=== PATIENT | female | born 1970 | race Caucasian/White ===

== ENCOUNTER 2016-12-26 08:54 | Day surgery (SDC) | payer BC ==
[~2016-12-26 08:54] MED LIST: Lactated Ringers 1,000 ML IV SCH; Lidocaine 1%/Sod Bicarbonate in NS 8.4% 1 ML Syringe PRN; Sodium Chloride 0.9% 10 ML Syringe FLUSH PRN
[2016-12-26] MEDS ORDERED: Ondansetron 4 MG/2 ML SDV IVPUSH PRN (09:10)
[2016-12-26] MEDS ORDERED: fentaNYL 100 MCG/2 ML SDV IVPUSH PRN (09:10)
--- NOTE | 2016-12-26 09:22 | PCM.PREANE ---
Preanesthetic Assessment - Anesthesia/Transfusion/Family Hx Anesthesia History: Prior Anesthesia Without Reaction Type of Anesthesia Reaction: Unknown Family History of Anesthesia Reaction: No Transfusion History: No Prior Transfusion(s) - Review of Systems General: No Symptoms Pulmonary: No Symptoms Cardiovascular: No Symptoms Gastrointestinal: No symptoms Other: Reports: None - Physical Assessment NPO Status Date: 12/25/16 NPO Status Time: 20:30 Pulse: 80 O2 Sat by Pulse Oximetry: 100 Respiratory Rate: 16 Blood Pressure: 116/80 Temperature: 36.8 C Weight: 71 kg ASA Class: 1 Mental Status: Alert & Oriented x3 Airway Class: Mallampati = 1 Dentition: Reports: Normal Dentition Thyro-Mental Finger Breadths: 3 Mouth Opening Finger Breadths: 3 ROM/Head Extension: Full Lungs: Clear to auscultation, Normal respiratory effort Cardiovascular: Regular Rate, Regular Rhythm - Allergies Allergies/Adverse Reactions: Allergies Allergy/AdvReac Type Severity Reaction Status Date / Time No Known Allergies Allergy Verified 12/25/16 17:04 - Blood Blood Available: No Product(s) Available: None - Anesthesia Plan Pre-Op Medication Ordered: None - Acknowledgements Anesthesia Type Planned: MAC Pt an Appropriate Candidate for the Planned Anesthesia: Yes Alternatives and Risks of Anesthesia Discussed w Pt/Guardian: Yes Pt/Guardian Understands and Agrees with Anesthesia Plan: Yes PreAnesthesia Questionnaire HEENT History: Reports: None Cardiovascular History: Reports: None Respiratory History: Reports: None 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: Musculoskeletal History: Reports: None Neurological History: Reports: None Psychiatric History: Reports: None Endocrine/Metabolic History: Reports: None Hematologic History: Reports: None Immunologic History: Reports: None Oncologic (Cancer) History: Reports: None Dermatologic History: Reports: None - Past Surgical History Head Surgeries/Procedures: Reports: None GI Surgical History: Reports: Cholecystectomy Female Surgical History: Reports: Tubal ligation - SUBSTANCE USE Smoking Status *Q: Never Smoker - HOME MEDS Home Medications: Home Meds Flaxseed Oil [Flax Oil] 1 cap PO DAILY 12/25/16 [History] L.acidoph,Paracasei, B.lactis [Probiotic] 1 cap PO DAILY 12/25/16 [History] Multivitamin [Poly-Vitamin] 1 tab PO DAILY 12/25/16 [History] Vit A/Vit C/Vit E/Selenium Yst [Antioxidant Formula Tablet] 1 tab PO DAILY 12/25 [History] - CURRENT (IN HOUSE) MEDS Current Meds: Current Medications Fentanyl (Sublimaze) 50 mcg IVPUSH Q5M PRN PRN Reason: pain Stop: 12/26/16 18:00 Lactated Ringer's (Ringers, Lactated) 1,000 mls @ 125 mls/hr IV ASDIRECTED JOVANI Stop: 12/26/16 23:00 Lidocaine/Sodium Bicarbonate (Buffered Lidocaine 1% In Ns 8.4%) 0.25 ml .XX ONETIME PRN PRN Reason: Prior to IV Start Stop: 12/26/16 18:00 Ondansetron HCl (Zofran) 4 mg IVPUSH ONETIME PRN PRN Reason: Nausea/Vomiting Stop: 12/26/16 18:00 Sodium Chloride (Saline Flush) 10 ml FLUSH ASDIRECTED PRN PRN Reason: Keep Vein Open Stop: 12/26/16 18:00
[2016-12-26] MEDS ORDERED: Propofol 200 MG/20 ML SDV ONE ×2 (09:44→12:00)
[2016-12-26] MEDS ORDERED: fentaNYL 100 MCG/2 ML SDV ONE ×3 (09:44→12:09)
[2016-12-26] MEDS ORDERED: Midazolam 1 MG/ML 2 ML SDV ONE (09:44)
[2016-12-26] MEDS ORDERED: Sodium Chloride 0.9% 10 ML ONE (09:49)
[2016-12-26] MEDS ORDERED: ceFAZolin 1 GM Vial ONE (09:49)
[2016-12-26] MEDS ORDERED: Lidocaine 1% with EPINEPHrine 1:100,000 20 ML MDV ONE (10:03)
[2016-12-26] MEDS ORDERED: Bupivacaine 0.5%/EPINEPHrine 1:200,000 50 ML MDV ONE (10:03)
[2016-12-26] MEDS ORDERED: Lactated Ringers 1,000 ML ONE (11:40)
--- NOTE | 2016-12-26 12:44 | PCM48HPAN ---
Post Anesthesia Note - EVALUATION WITHIN 48HRS OF ANESTHETIC Vital Signs in Normal Range: Yes Patient Participated in Evaluation: Yes Respiratory Function Stable: Yes Airway Patent: Yes Cardiovascular Function Stable: Yes Hydration Status Stable: Yes Pain Control Satisfactory: Yes Nausea and Vomiting Control Satisfactory: Yes Mental Status Recovered: Yes
--- NOTE | 2016-12-26 13:09 | PCM.OPNOTE ---
- General Post-Op/Procedure Note Date of Surgery/Procedure: 12/26/16 Operative Procedure(s): excision of large back lipoma Findings: 6x8x5 cm lipoma left scapula Pre Op Diagnosis: symptomatic lipoma of the back Post-Op Diagnosis: same Anesthesia Technique: Local, MAC Primary Surgeon: Ralph Cox Pathology: 8 x 6 x 5 cm lipoma EBL in mLs: 2 Surgical Drain/Tube Type: Cosmo Gagnon Flat Drain (7 mm) Complications: None Condition: Good Free Text/Narrative:: After prone positioning the left back was prepped and draped sterilely for the procedure. Local analgesia was given into the skin and subcutaneous tissue scentered over the mass lesion. A 5 cm incision was made with a 15 blade through the skin and dermis down to the subcutaneous tissues. Metzenbaum scissors were used to circumferentially separate the large lipoma away from surrounding structures. The lipoma was removed. Hemostasis was obtained in the excision site with cautery as necessary. I irrigated out the feel with saline. The superior and inferior flaps were secured to the underlying fascia with interrupted 3-0 Vicryl after a 7 mm flat EBONI drain was placed into the excision site through a separate incision. The subcutaneous tissues were closed with interrupted 3-0 Vicryl. The skin was closed with 4-0 subcuticular Vicryl. Steri- Strips and gauze were used for the dressing. There were no complications.
[2016-12-26] MEDS ORDERED: Ketorolac 30 MG/ML SDV IVPUSH SCH (13:15)
[2016-12-26 15:26] VITALS: BP 110/64
== END 2016-12-26 15:10 | disposition home or self-care (01) ==
LOC: JD.SDS 08:54
PROVIDERS: ATTEND Surgery
DX: D17.1 Benign lipomatous neoplasm of skin and subcutaneous tissue of trunk (principal); Z79.899 Other long term (current) drug therapy; Z98.890 Other specified postprocedural states; Z98.51 Tubal ligation status; Z78.9 Other specified health status
CPT/HCPCS: 11406; 12034; J0690; J1885; J2250; J2405; J3010; J7120; 00300; J2704

== ENCOUNTER 2018-01-01 07:40 | Day surgery (SDC) | payer BC ==
[~2018-01-01 07:40] MED LIST changes: +Dexamethasone 4 MG/ML SDV ONE; +Lactated Ringers 1,000 ML ONE; +Lidocaine 1% 4 ML ONE; +Lidocaine 1%/Sod Bicarbonate in NS 8.4% 1 ML Syringe IDERM PRN; -Lidocaine 1%/Sod Bicarbonate in NS 8.4% 1 ML Syringe PRN; +Midazolam 1 MG/ML 2 ML SDV ONE; +Ondansetron 4 MG/2 ML SDV ONE; +Propofol 200 MG/20 ML SDV ONE; +Rocuronium 50 MG/5 ML Vial ONE; +ceFAZolin 1 GM Vial ONE; +fentaNYL 250 MCG/5 ML SDV ONE
[2018-01-01] MEDS ORDERED: fentaNYL 100 MCG/2 ML SDV ONE (08:00)
[2018-01-01] MEDS ORDERED: diphenhydrAMINE 50 MG/ML SDV ONE ×2 (08:10→09:53)
[2018-01-01] MEDS ORDERED: Phenylephrine/Normal Saline 100 MCG/ML 10 ML Syringe ONE (08:10)
[2018-01-01] MEDS ORDERED: Propofol 200 MG/20 ML SDV ONE ×2 (08:58→09:53)
[2018-01-01] MEDS ORDERED: Scopolamine 1.5 MG Transdermal Patch TOP ONE (09:00)
[2018-01-01] MEDS: Bupivacaine 0.5% 30 ML SDV ONE ×2 (09:45→10:09)
[2018-01-01] MEDS ORDERED: fentaNYL 250 MCG/5 ML SDV ONE (09:56)
[2018-01-01] MEDS ORDERED: Rocuronium 50 MG/5 ML Vial ONE (09:59)
[2018-01-01] MEDS: Sodium Chloride 0.9% 50 ML SDV ONE ×2 (10:10→10:25)
[2018-01-01] MEDS: Lidocaine 1% with EPINEPHrine 1:100,000 20 ML MDV ONE ×2 (10:10→10:25)
--- NOTE | 2018-01-01 10:12 | PCM.PREANE ---
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 No change in symptoms. ), Other (Stiff neck/neck pain) Other: Reports: Neck Pain - Physical Assessment NPO Status Date: 12/31/17 NPO Status Time: 23:00 O2 Sat by Pulse Oximetry: 96 Respiratory Rate: 16 Vital Signs: Last Vital Signs Temp 36.9 C 01/01/18 07:50 Pulse 72 01/01/18 07:50 Resp 16 01/01/18 07:50 BP 101/74 01/01/18 07:50 Pulse Ox 96 01/01/18 07:50 Height: 1.65 m Weight: 68.492 kg ASA Class: 2 Mental Status: Alert & Oriented x3 Airway Class: Mallampati = 1 Dentition: Reports: Normal Dentition Thyro-Mental Finger Breadths: 3 Mouth Opening Finger Breadths: 3 ROM/Head Extension: Full Lungs: Clear to Auscultation, Normal Respiratory Effort Cardiovascular: Regular Rate, Regular Rhythm - Lab Values: Laboratory Last Values WBC 7.74 K/mm3 (3.98-10.04) 01/01/18 07:55 RBC 4.54 M/mm3 (3.98-5.22) 01/01/18 07:55 Hgb 13.1 gm/L (11.2-15.7) 01/01/18 07:55 Hct 40.9 % (34.1-44.9) 01/01/18 07:55 MCV 90.1 fl (79.4-94.8) 01/01/18 07:55 MCH 28.9 pg (25.6-32.2) 01/01/18 07:55 MCHC 32.0 g/dl (32.2-35.5) L 01/01/18 07:55 RDW Std Deviation 50.4 fL (36.4-46.3) H 01/01/18 07:55 Plt Count 289 K/mm3 (182-369) 01/01/18 07:55 MPV 10.5 fl (9.4-12.3) 01/01/18 07:55 Neut % (Auto) 38.0 % (34.0-71.1) 01/01/18 07:55 Lymph % (Auto) 49.1 % (19.3-51.7) 01/01/18 07:55 Brown % (Auto) 10.1 % (4.7-12.5) 01/01/18 07:55 Eos % (Auto) 2.3 (0.7-5.8) 01/01/18 07:55 Baso % (Auto) 0.4 % (0.1-1.2) 01/01/18 07:55 Neut # (Auto) 2.94 K/mm3 (1.56-6.13) 01/01/18 07:55 Lymph # (Auto) 3.80 K/mm3 (1.18-3.74) H 01/01/18 07:55 Brown # (Auto) 0.78 K/mm3 (0.24-0.36) H 01/01/18 07:55 Eos # (Auto) 0.18 K/mm3 (0.04-0.36) 01/01/18 07:55 Baso # (Auto) 0.03 K/mm3 (0.01-0.08) 01/01/18 07:55 - Allergies Allergies/Adverse Reactions: Allergies Allergy/AdvReac Type Severity Reaction Status Date / Time tyramine Allergy Cannot Uncoded 12/31/17 12:20 Remember - Acknowledgements Anesthesia Type Planned: General Anesthesia Pt an Appropriate Candidate for the Planned Anesthesia: Yes Alternatives and Risks of Anesthesia Discussed w Pt/Guardian: Yes Pt/Guardian Understands and Agrees with Anesthesia Plan: Yes Additional Comments: Patient very concerned regarding her history of PONV. She was not nauseated with her splenectomy at [place], but got very nauseated with her surgery with Dr. Cox here. I discussed the risk of nausea with Lidia. She is to receive a scopolamine patch preoperatively and I will plan for a total TIVA anesthetic with BIS monitoring. 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, Musculoskeletal History: Reports: None Neurological History: Reports: Other (See Below) Other Neuro History: arnold-chiari malformation Psychiatric History: Reports: None Endocrine/Metabolic History: Reports: None Hematologic History: Reports: Other (See Below) Other Hematologic History: thrombocytopenia Immunologic History: Reports: None Oncologic (Cancer) History: Reports: None Dermatologic History: Reports: None, Other (See Below) Other Dermatologic History: lipoma - Past Surgical History Head Surgeries/Procedures: Reports: None HEENT Surgical History: Reports: LASIK Cardiovascular Surgical History: Reports: None Respiratory Surgical History: Reports: None GI Surgical History: Reports: Cholecystectomy, Colonoscopy, Other (See Below) Other GI Surgeries/Procedures: splenic mass, splenectomy Female Surgical History: Reports: D&C, Tubal Ligation Endocrine Surgical History: Reports: None Neurological Surgical History: Reports: None Musculoskeletal Surgical History: Reports: None Oncologic Surgical History: Reports: None - SUBSTANCE USE Smoking Status *Q: Never Smoker Recreational Drug Use History: No - HOME MEDS Home Medications: Home Meds Flaxseed Oil [Flax Oil] 1 cap PO DAILY 12/25/16 [History] L.acidoph,Paracasei, B.lactis [Probiotic] 1 cap PO DAILY 12/25/16 [History] Multivitamin [Poly-Vitamin] 1 tab PO DAILY 12/25/16 [History] Vit A/Vit C/Vit E/Selenium Yst [Antioxidant Formula Tablet] 1 tab PO DAILY 12/25 [History] Acetaminophen/oxyCODONE [Percocet 325-5 MG] 1 tab PO Q4H PRN 12/31/17 [History] Dicyclomine [Bentyl] 10 mg PO QID PRN 12/31/17 [History] Ibuprofen [Advil] 200 - 600 mg PO Q6H PRN 12/31/17 [History] Melatonin 1 mg PO DAILY 12/31/17 [History] Ubidecarenone [Coq-10] 100 mg PO DAILY 12/31/17 [History] - CURRENT (IN HOUSE) MEDS Current Meds: Current Medications Lactated Ringer's (Ringers, Lactated) 1,000 mls @ 125 mls/hr IV ASDIRECTED JOVANI Stop: 01/01/18 23:00 Last Admin: 01/01/18 08:00 Dose: 125 mls/hr Lidocaine/Sodium Bicarbonate (Buffered Lidocaine 1% In Ns 8.4%) 0.25 ml IDERM ONETIME PRN PRN Reason: Prior to IV Start Stop: 01/01/18 18:00 Last Admin: 01/01/18 07:49 Dose: 0.25 ml Sodium Chloride (Saline Flush) 10 ml FLUSH ASDIRECTED PRN PRN Reason: Keep Vein Open Stop: 01/01/18 18:00 Discontinued Medications Bupivacaine HCl (Marcaine 0.5%) Confirm Administered Dose 30 ml .ROUTE .STK-MED ONE Stop: 01/01/18 08:35 Cefazolin Sodium (Ancef) Confirm Administered Dose 2 gm .ROUTE .STK-MED ONE Stop: 01/01/18 07:30 Dexamethasone (Dexamethasone) Confirm Administered Dose 4 mg .ROUTE .STK-MED ONE Stop: 01/01/18 07:30 Dexamethasone (Dexamethasone) Confirm Administered Dose 4 mg .ROUTE .STK-MED ONE Stop: 01/01/18 07:31 Diphenhydramine HCl (Benadryl) Confirm Administered Dose 50 mg .ROUTE .STK-MED ONE Stop: 01/01/18 08:11 Diphenhydramine HCl (Benadryl) Confirm Administered Dose 50 mg .ROUTE .STK-MED ONE Stop: 01/01/18 09:54 Fentanyl (Sublimaze) Confirm Administered Dose 250 mcg .ROUTE .STK-MED ONE Stop: 01/01/18 07:31 Fentanyl (Sublimaze) Confirm Administered Dose 100 mcg .ROUTE .STK-MED ONE Stop: 01/01/18 08:01 Fentanyl (Sublimaze) Confirm Administered Dose 250 mcg .ROUTE .STK-MED ONE Stop: 01/01/18 09:57 Lactated Ringer's (Ringers, Lactated) Confirm Administered Dose 1,000 mls @ as directed .ROUTE .STK-MED ONE Stop: 01/01/18 07:30 Lidocaine HCl (Xylocaine-Mpf 1%) Confirm Administered Dose 4 mls @ as directed .ROUTE .STK-MED ONE Stop: 01/01/18 07:31 Lidocaine/Epinephrine (Xylocaine 1% With Epinephrine 1:100,000) Confirm Administered Dose 20 ml .ROUTE .STK-MED ONE Stop: 01/01/18 08:35 Midazolam HCl (Versed 1 Mg/Ml) Confirm Administered Dose 2 mg .ROUTE .STK-MED ONE Stop: 01/01/18 07:31 Ondansetron HCl (Zofran) Confirm Administered Dose 4 mg .ROUTE .STK-MED ONE Stop: 01/01/18 07:30 Phenylephrine HCl (Phenylephrine In Ns 100 Mcg/Ml) Confirm Administered Dose 1 mg .ROUTE .STK-MED ONE Stop: 01/01/18 08:11 Propofol (Diprivan 20 Ml) Confirm Administered Dose 400 mg .ROUTE .STK-MED ONE Stop: 01/01/18 07:31 Propofol (Diprivan 20 Ml) Confirm Administered Dose 400 mg .ROUTE .STK-MED ONE Stop: 01/01/18 08:59 Propofol (Diprivan 20 Ml) Confirm Administered Dose 600 mg .ROUTE .STK-MED ONE Stop: 01/01/18 09:54 Rocuronium [place] (Zemuron) Confirm Administered Dose 50 mg .ROUTE .STK-MED ONE Stop: 01/01/18 07:30 Rocuronium [place] (Zemuron) Confirm Administered Dose 50 mg .ROUTE .STK-MED ONE Stop: 01/01/18 10:00 Scopolamine (Transderm-Scop) 1.5 mg TOP ONETIME ONE Stop: 01/01/18 09:01 Last Admin: 01/01/18 09:06 Dose: 1.5 mg Sodium Chloride (Normal Saline) Confirm Administered Dose 50 ml .ROUTE .STK-MED ONE Stop: 01/01/18 08:35
[2018-01-01] MEDS ORDERED: Haloperidol Lactate 5 MG/ML SDV IVPUSH PRN (10:14)
[2018-01-01] MEDS ORDERED: Meperidine PF 50 MG/ML Syringe IVPUSH PRN (10:14)
[2018-01-01] MEDS ORDERED: diphenhydrAMINE 50 MG/ML SDV IVPUSH PRN (10:14)
[2018-01-01] MEDS ORDERED: fentaNYL 100 MCG/2 ML SDV IVPUSH PRN (10:14)
[2018-01-01] MEDS ORDERED: Lactated Ringers 1,000 ML ONE ×2 (10:29)
--- NOTE | 2018-01-01 11:27 | PCM.POSTAN ---
POST ANESTHESIA ASSESSMENT - MENTAL STATUS Mental Status: Alert, Oriented - VITAL SIGNS Pulse Rate: 52 SaO2: 96 Resp Rate: 8 Blood Pressure: 99/63 Temperature: 36.3 C - RESPIRATORY Respiratory Status: Respiratory Rate WNL, Airway Patent, O2 Saturation Stable, Supplemental Oxygen - CARDIOVASCULAR CV Status: Pulse Rate WNL, Blood Pressure Stable - GASTROINTESTINAL GI Status: No Symptoms - PAIN Pain Score: 0 - POST OP HYDRATION Hydration Status: Adequate & Stable
--- NOTE | 2018-01-01 11:28 | PCM.OPNOTE ---
- General Post-Op/Procedure Note Date of Surgery/Procedure: 01/01/18 Operative Procedure(s): Laparoscopic assisted vaginal hysterectomy with bilateral salpingectomy Findings: Bilateral (left greater than right) hematosalpinx, normal ovaries, normal uterus. Pre Op Diagnosis: Left pelvic pain and dysmenorrhea. Post-Op Diagnosis: Same, hematosalpinx left greater than right Anesthesia Technique: General ET Tube Primary Surgeon: Una Gaona Mixing Picker Tender: Gracie Chao Reason Mixing Picker Tender Was Necessary: retraction, reduction of anesthesia time, patient safety. Pathology: Uterus with bilateral fallopian tubes Fluid Replacement, Intraop: 2,000 Output, Urine Amount: 300 EBL in mLs: 100 Complications: None Condition: Good Free Text/Narrative:: After obtaining appropriate consent she was taken the the operating room where general anesthetic was administered. She was prepped and draped in the usual sterile fashion in high lithotomy using tarik stirrups. A weighted speculum was placed in the posterior vagina and a jose utilized anteriorly to visualize the cervix which was grasped with a single toothed tenaculum and placed on traction. A [employer] uterine manipulator was then advanced into the uterus. Attention was re-directed to the abdomen and a 5 mm skin incision was made in the patient's umbilical fold. A blunt tipped trocar was advanced under direct visualization using the laparoscope. The abdomen was insufflated and no evidence of injury upon entry was noted. General survey of the abdomen reveal normal uterus and ovaries with left hematosalpinx. A 5 mm incision was then made on each the right and left side and a blunt tipped trocar was advanced under direct visualization. The left ovary was elevated and the mesosalpinx was cauterized along the length of the fallopian tube. The dissection was continued to the round ligament. The round ligament was then cauterized and transected. The bladder flap was created starting on the left. Bladder was dissected off the cervix with blunt and ligasure dissection. The broad ligament on the left was serial cauterized and transected to the level of the uterine artery which was cauterized but not cut. There was a small adhesion on the right of the fallopian tube to anterior abdominal wall which was taken down with ligasure. The tube, round ligament, broad ligament and uterine artery were cauterized and transected in a similar manner. No bleeding was noted at any of the pedicles. All instruments were removed and the gas was released. Attention was redirected to the vagina. Area of intended colpotomy injected with 25% marcaine with epinepherine. Incision made with scapel. The posterior cul-de-sac was entered sharply with the Newsome scissors. The long weighted speculum was placed. The uterosacral ligaments were identified bilaterally, clamped, transected with ligasure. A second clamp was placed onto the cardinal ligament bilaterally, this was transected and ligasure ligated. Attention was turned anteriorly. Blunt and sharp dissection was used to mobilize the bladder off the cervix. The anterior cul-de-sac was easily entered sharply. The cardinal ligament was serially clamped, transected and suture ligated. The Angelina retractor was advanced. The cardinal ligament was then clamped to met the dissection from above including the uterine vessels bilaterally. The specimen was delivered and handed off. Inspection of the pedicles noted hemostasis. The posterior cuff was run with 0- vicryl in a running fashion. The cuff was closed using 0 vicryl figure of eights in a vertical fashion. The retractors were removed and the abdomen was reinsufflated. All pedicles were hemostatic. All instruments were removed from the abdomen and the incisions were closed with 4-0 vicryl and covered with dermabond. The cystoscope was obtained. Clear urine was noted. A survey of the bladder revealed no injury, bilateral ureteral jets and no stitches present. The bladder was drained. She was repositioned supine, draping removed and then taken to PACU in stable condition. Needle, sponge and instrument counts were correct X 3.
[2018-01-01] MEDS: HYDROmorphone 0.5 MG/0.5 ML Syringe IVPUSH PRN ×2 (11:36→11:55)
[2018-01-01] MEDS ORDERED: Ketorolac 30 MG/ML SDV IVPUSH ONE (13:35)
[2018-01-01] MEDS ORDERED: Acetaminophen/oxyCODONE 325-5 MG Tab PO ONE (13:36)
[2018-01-01 16:35] VITALS: BP 102/60
== END 2018-01-01 16:15 | disposition home or self-care (01) ==
LOC: JD.SDS 07:40
PROVIDERS: ATTEND Obstetrics & Gynecology
DX: N87.9 Dysplasia of cervix uteri, unspecified (principal); D25.9 Leiomyoma of uterus, unspecified; N73.6 Female pelvic peritoneal adhesions (postinfective); N83.8 Other noninflammatory disorders of ovary, fallopian tube and broad ligament; Z88.8 Allergy status to other drugs, medicaments and biological substances; Z98.51 Tubal ligation status; Z87.891 Personal history of nicotine dependence; Z79.899 Other long term (current) drug therapy
CPT/HCPCS: 36415; 58552; 85025; A9270; J0690; J1100; J1170; J1200; J1885; J2001; J2250; J2405; J3010; J7120; J2704

== ENCOUNTER 2021-01-02 07:11 | Day surgery (SDC) | payer BC ==
[~2021-01-02 07:11] MED LIST changes: +Acetaminophen 325 MG Tab PO SCH; -Dexamethasone 4 MG/ML SDV ONE; -Lactated Ringers 1,000 ML IV SCH; -Lidocaine 1% 4 ML ONE; -Ondansetron 4 MG/2 ML SDV ONE; +Pregabalin 25 MG Cap PO SCH; -Rocuronium 50 MG/5 ML Vial ONE; +fentaNYL 100 MCG/2 ML SDV ONE; -fentaNYL 250 MCG/5 ML SDV ONE; +oxyCODONE ER 10 MG TAB.ER PO SCH
[2021-01-02] MEDS: Lactated Ringers 1,000 ML IV SCH ×2 (07:30→11:39)
[2021-01-02] MEDS ORDERED: Scopolamine 1.5 MG Transdermal Patch TRDERM PRN (07:51)
--- NOTE | 2021-01-02 07:52 | PCM.PREANE ---
Preanesthetic Assessment - Anesthesia/Transfusion/Family Hx Anesthesia History: Prior Anesthesia Without Reaction Family History of Anesthesia Reaction: No Transfusion History: No Prior Transfusion(s) - Review of Systems General: No Symptoms, Other (hx of spleenectomy) Pulmonary: No Symptoms Cardiovascular: No Symptoms Gastrointestinal: No Symptoms, Other (hx of gastritis, hiatal hernia, denies heartburn) Neurological: Headache Other: Reports: Thyroid Problems (hx of parathyroidectomy, calcium normal) - Physical Assessment NPO Status Date: 01/01/21 NPO Status Time: 21:30 Vital Signs: Last Vital Signs Temp 36.8 C 01/02/21 07:15 Pulse 78 01/02/21 07:15 Resp 16 01/02/21 07:15 BP 126/79 01/02/21 07:15 Pulse Ox 99 01/02/21 07:15 Height: 1.65 m Weight: 70.76 kg ASA Class: 3 Mental Status: Alert & Oriented x3 Airway Class: Mallampati = 2 Dentition: Reports: Normal Dentition Thyro-Mental Finger Breadths: 3 Mouth Opening Finger Breadths: 3 ROM/Head Extension: Full Lungs: Clear to Auscultation, Normal Respiratory Effort Cardiovascular: Regular Rate, Regular Rhythm - Lab Values: Laboratory Last Values MRSA (PCR) Cancelled 12/16/20 12:06 - Allergies Allergies/Adverse Reactions: Allergies Allergy/AdvReac Type Severity Reaction Status Date / Time adhesive Allergy Cannot Verified 12/30/20 15:26 Remember tyramine Allergy Cannot Uncoded 12/30/20 15:26 Remember - Blood Blood Available: No Product(s) Available: None - Anesthesia Plan Pre-Op Medication Ordered: None - Acknowledgements Anesthesia Type Planned: Spinal Pt an Appropriate Candidate for the Planned Anesthesia: Yes Alternatives and Risks of Anesthesia Discussed w Pt/Guardian: Yes Pt/Guardian Understands and Agrees with Anesthesia Plan: Yes PreAnesthesia Questionnaire HEENT History: Reports: Impaired Vision, Other (See Below) Other HEENT History: reading glasses Cardiovascular History: Reports: None Respiratory History: Reports: None Gastrointestinal History: Reports: Gastritis, Other (See Below) Other Gastrointestinal History: duodenitis, intestinal metaplasia of gastric mucosa, splenic mass, total splenectomy, tubular adenoma Genitourinary History: Reports: Other (See Below) Other Genitourinary History: pelvic pain, cervical stenosis, cyst excision, hysteroscopy 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, Musculoskeletal History: Reports: None Neurological History: Reports: Other (See Below) Other Neuro History: arnold-chiari malformation Psychiatric History: Reports: None Endocrine/Metabolic History: Reports: None Hematologic History: Reports: Other (See Below) Other Hematologic History: thrombocytopenia Immunologic History: Reports: None Oncologic (Cancer) History: Reports: None Dermatologic History: Reports: Other (See Below) Other Dermatologic History: lipoma, scalp cyst excision x 3, keratomileusis, tinea pedis - Infectious Disease History Infectious Disease History: Reports: None - Past Surgical History Head Surgeries/Procedures: Reports: None HEENT Surgical History: Reports: LASIK Cardiovascular Surgical History: Reports: None Respiratory Surgical History: Reports: None GI Surgical History: Reports: Cholecystectomy, Colonoscopy, Other (See Below) Other GI Surgeries/Procedures: splenic mass, splenectomy Female Surgical History: Reports: D&C, Hysterectomy, Tubal Ligation Endocrine Surgical History: Reports: Parathyroidectomy Neurological Surgical History: Reports: None Musculoskeletal Surgical History: Reports: None Oncologic Surgical History: Reports: None - SUBSTANCE USE Tobacco Use Status *Q: Never Tobacco User Recreational Drug Use History: No - HOME MEDS Home Medications: Home Meds Acyclovir 800 mg PO ASDIRECTED PRN 12/30/20 [History] Apixaban [Eliquis] 2.5 mg PO BID #70 tablet 12/30/20 [Rx] Cholecalciferol (Vitamin D3) [Vitamin D3] 5,000 unit PO DAILY 12/30/20 [History] Cyclobenzaprine [Flexeril] 10 mg PO BID PRN #20 tab 12/30/20 [Rx] Melatonin 3 mg PO DAILY 12/30/20 [History] Multivitamin 1 tab PO DAILY 12/30/20 [History] Pantoprazole Sodium [Protonix] 40 mg PO DAILY 12/30/20 [History] SUMAtriptan [Imitrex] 50 mg PO ASDIRECTED PRN 12/30/20 [History] Sucralfate [Carafate] 1 gm PO QID 12/30/20 [History] Vit A/Vit C/Vit E/Selenium Yst [Antioxidant Formula Tablet] 1 cap PO DAILY 12/30/20 [History] estradioL [Estrace 0.01% Vaginal Crm] 1 dose VAG ASDIRECTED 12/30/20 [History] oxyCODONE 5 - 10 mg PO Q4H PRN #40 tab 12/30/20 [Rx] - CURRENT (IN HOUSE) MEDS Current Meds: Current Medications Acetaminophen (Acetaminophen 325 Mg Tab) 975 mg PO ONETIME JOVANI Stop: 01/02/21 16:00 Last Admin: 01/02/21 07:12 Dose: 975 mg Documented by: Morphine Sulfate 8 mg/Epinephrine HCl 0.3 mg/Cefuroxime Sodium 750 mg/Ketorolac Tromethamine 30 mg/Sodium Chloride 7.9 ml 0 mg .XX ASDIRECTED PRN PRN Reason: Pain Stop: 01/02/21 18:00 Lactated Ringer's (Ringers, Lactated) 1,000 mls @ 125 mls/hr IV ASDIRECTED JOVANI Stop: 01/02/21 23:00 Lidocaine/Sodium Bicarbonate (Lidocaine 1%/Sod Bicarbonate In Ns 8.4% 1 Ml Syringe) 0.25 ml IDERM ONETIME PRN PRN Reason: Prior to IV Start Stop: 01/02/21 18:00 Oxycodone HCl (Oxycodone Er 10 Mg Tab.Er) 10 mg PO ONETIME JOVANI Stop: 01/02/21 16:00 Last Admin: 01/02/21 07:12 Dose: 10 mg Documented by: Pregabalin (Pregabalin 25 Mg Cap) 50 mg PO ONETIME JOVANI Stop: 01/02/21 16:00 Last Admin: 01/02/21 07:11 Dose: 50 mg Documented by: Sodium Chloride (Sodium Chloride 0.9% 10 Ml Syringe) 10 ml FLUSH ASDIRECTED PRN PRN Reason: Keep Vein Open Stop: 01/02/21 18:00 Discontinued Medications Cefazolin Sodium (Cefazolin 1 Gm Vial) Confirm Administered Dose 2 gm .ROUTE .STK-MED ONE Stop: 01/02/21 07:02 Fentanyl (Fentanyl 100 Mcg/2 Ml Sdv) Confirm Administered Dose 100 mcg .ROUTE .STK-MED ONE Stop: 01/02/21 07:02 Lactated Ringer's (Ringers, Lactated) Confirm Administered Dose 1,000 mls @ as directed .ROUTE .STK-MED ONE Stop: 01/02/21 07:02 Midazolam HCl (Midazolam 1 Mg/Ml 2 Ml Sdv) Confirm Administered Dose 2 mg .ROUTE .STK-MED ONE Stop: 01/02/21 07:03 Propofol (Propofol 200 Mg/20 Ml Sdv) Confirm Administered Dose 600 mg .ROUTE .STK-MED ONE Stop: 01/02/21 07:02 Tranexamic Acid (Tranexamic Acid 1,000 Mg/10 Ml Amp) Confirm Administered Dose 1,000 mg .ROUTE .STK-MED ONE Stop: 01/02/21 07:32 Vancomycin HCl (Vancomycin 1 Gm Sdv) Confirm Administered Dose 1 gm .ROUTE .STK- MED ONE Stop: 01/02/21 07:32
[2021-01-02] MEDS ORDERED: fentaNYL 250 MCG/5 ML SDV ONE (08:29)
[2021-01-02] MEDS ORDERED: Ondansetron 4 MG/2 ML SDV ONE (08:46)
[2021-01-02] MEDS ORDERED: Dexamethasone 4 MG/ML 5 ML MDV ONE (08:46)
[2021-01-02] MEDS ORDERED: diphenhydrAMINE 50 MG/ML SDV ONE (08:46)
[2021-01-02] MEDS ORDERED: Rocuronium 50 MG/5 ML Vial ONE (08:46)
[2021-01-02] MEDS ORDERED: Sodium Chloride 0.9% 100 ML ONE (09:03)
[2021-01-02] MEDS ORDERED: Dexmedetomidine 200 MCG/2 ML SDV ONE (09:09)
[2021-01-02] MEDS: Vancomycin 1 GM SDV ONE ×2 (09:39→10:09)
[2021-01-02] MEDS: Bupivacaine 0.25% 10 ML SDV ONE ×2 (09:40→10:09)
[2021-01-02] MEDS: Morphine 8 MG, EPINEPHrine 0.3 MG, Cefuroxime 750 MG, Ketorolac 30 MG, Sodium Chloride ... PRN ×10 (09:40→10:08)
[2021-01-02] MEDS ORDERED: Ketamine 500 mg/10 ML MDV ONE (09:41)
[2021-01-02] MEDS ORDERED: Ondansetron 4 MG/2 ML SDV IVPUSH PRN (10:55)
--- NOTE | 2021-01-02 10:55 | PCM.POSTAN ---
POST ANESTHESIA ASSESSMENT - MENTAL STATUS Mental Status: Alert, Oriented - VITAL SIGNS Vital Signs: Last Vital Signs Temp 36.8 C 01/02/21 07:15 Pulse 78 01/02/21 07:15 Resp 16 01/02/21 07:15 BP 126/79 01/02/21 07:15 Pulse Ox 99 01/02/21 07:15 - RESPIRATORY Respiratory Status: Respiratory Rate WNL, Airway Patent, O2 Saturation Stable, Supplemental Oxygen - CARDIOVASCULAR CV Status: Pulse Rate WNL, Blood Pressure Stable - GASTROINTESTINAL GI Status: No Symptoms - PAIN Pain Score: 0 - POST OP HYDRATION Hydration Status: Adequate & Stable
[2021-01-02] MEDS ORDERED: HYDROmorphone 0.5 MG/0.5 ML Syringe IVPUSH PRN ×2 (10:56→11:18)
[2021-01-02] MEDS ORDERED: Cyclobenzaprine 10 MG Tab PO SCH (10:59)
[2021-01-02] MEDS ORDERED: fentaNYL 100 MCG/2 ML SDV ONE (11:14)
[2021-01-02] MEDS: fentaNYL 100 MCG/2 ML SDV IVPUSH PRN ×2 (11:16→11:27)
[2021-01-02] MEDS: oxyCODONE 5 MG Tab PO PRN ×2 (11:17→16:33)
[2021-01-02] MEDS ORDERED: Midazolam 1 MG/ML 2 ML SDV IVPUSH PRN (11:17)
[2021-01-02] MEDS ORDERED: Midazolam 1 MG/ML 2 ML SDV ONE (11:24)
--- NOTE | 2021-01-02 11:25 | CR ---
Pelvis and right hip: AP view the pelvis was obtained as well as crosstable lateral view of the right hip. Comparison: Prior CT study of the right hip dated 12/16/20. Right hip prosthesis is seen. Components are aligned. Soft tissue air is noted. No acute osseous finding is otherwise seen. Impression: 1. Satisfactory postop radiographic appearance of recently placed right hip prosthesis. Diagnostic code #2
--- NOTE | 2021-01-02 13:14 | PCM48HPAN ---
Post Anesthesia Note - EVALUATION WITHIN 48HRS OF ANESTHETIC Vital Signs in Normal Range: Yes Patient Participated in Evaluation: Yes Respiratory Function Stable: Yes Airway Patent: Yes Cardiovascular Function Stable: Yes Hydration Status Stable: Yes Pain Control Satisfactory: Yes Nausea and Vomiting Control Satisfactory: Yes Mental Status Recovered: Yes Vital Signs: Last Vital Signs Temp 37.1 C 01/02/21 13:00 Pulse 88 01/02/21 13:00 Resp 13 01/02/21 13:00 BP 113/67 01/02/21 13:00 Pulse Ox 98 01/02/21 13:00
--- NOTE | 2021-01-02 16:41 | PCM.OPNOTE ---
- General Post-Op/Procedure Note Date of Surgery/Procedure: 01/02/21 Operative Procedure(s): right total hip arthroplasty with [employer] robotics Pre Op Diagnosis: right hip osteoarthrosis Post-Op Diagnosis: Same Anesthesia Technique: General ET Tube, Local Primary Surgeon: Isidoro Villagomez Anesthesia Provider: Catrachita Jain Computer Clerk: Gina Eller Computer Clerk: Nohemi Marsh EBL in mLs: 200 Complications: None Condition: Good Free Text/Narrative:: 52 4 stem 28-4 MDM
[2021-01-02] MEDS: ceFAZolin 2 GM in Premix Bag 1 BAG IV SCH ×2 (17:11→23:02)
[2021-01-02] MEDS ORDERED: oxyCODONE 5 MG Tab PO PRN (20:50)
[2021-01-02] MEDS ORDERED: Cyclobenzaprine 10 MG Tab PO PRN (20:52)
[2021-01-03] MEDS ORDERED: Ondansetron 4 MG/2 ML SDV IVPUSH PRN (02:11)
[2021-01-03] MEDS: ceFAZolin 2 GM in Premix Bag 1 BAG IV SCH (06:07)
[2021-01-03] MEDS: oxyCODONE 5 MG Tab PO PRN ×2 (06:07→10:18)
[2021-01-03] MEDS ORDERED: SUMAtriptan 50 MG Tab PO PRN (07:23)
[2021-01-03 08:05] VITALS: PULSE 86
[2021-01-03] MEDS ORDERED: Sucralfate 1 GM Tab PO SCH (09:00)
[2021-01-03] MEDS ORDERED: Pantoprazole 40 MG Tab.CR PO SCH (09:00)
[2021-01-03 11:21] VITALS: BP 111/83
--- NOTE | 2021-01-03 11:37 | PCM48HPAN ---
Post Anesthesia Note - EVALUATION WITHIN 48HRS OF ANESTHETIC Vital Signs in Normal Range: Yes Patient Participated in Evaluation: Yes Respiratory Function Stable: Yes (states saturation drops to 50% when asleep) Airway Patent: Yes Cardiovascular Function Stable: Yes Hydration Status Stable: Yes Pain Control Satisfactory: Yes (still has a great deal of pain in hip per p atient) Nausea and Vomiting Control Satisfactory: Yes Vital Signs: Last Vital Signs Temp 98.6 F 01/03/21 05:52 Pulse 86 01/03/21 05:52 Resp 14 01/03/21 05:52 BP 111/83 01/03/21 10:57 Pulse Ox 99 01/03/21 06:42
--- NOTE | 2021-01-16 08:57 | OR ---
DATE OF OPERATION: 01/02/2021 SURGEON: Isidoro Villagomez MD OPERATION PERFORMED: Right total hip arthroplasty with [employer] robot[employer]. PREOPERATIVE DIAGNOSIS: Right hip osteoarthrosis. POSTOPERATIVE DIAGNOSIS: Right hip osteoarthrosis. ANESTHESIA: General intubation with local. ANESTHESIA PROVIDER: Catrachita Jain. ASSISTANTS: Gina Eller PA-C and Nohemi Marsh LPN. ESTIMATED BLOOD LOSS: 200 mL. COMPLICATIONS: None. CONDITION: Stable. IMPLANTS: 1. [place] size 52 mm solid tritanium II acetabular cup. 2. [place] size 4 Accolade II stem. 3. [place] size 28, -4 MDM components. DESCRIPTION OF PROCEDURE: The patient was identified in the preoperative holding area. Proper site was marked and identified by the surgeon. The patient was taken back to the operating theater where after adequate anesthesia, the patient was placed in a left lateral decubitus position. Axillary roll was placed. All bony prominences were well padded. Pegs were placed and well-padded. The patient's gluteal fold was parallel to the floor. Right hip was then sterilely prepped and draped in the usual sterile fashion. OR time-out was performed. The patient received 2 g IV Ancef. At this time, three 4-0 Schanz pins were placed in the iliac crest just posterior to the ASIS, and the [employer] robotic array was placed. A standard posterior incision was made. This was taken down to the IT band and gluteal fascia, which was incised along the incisional length. A check point was placed in the greater trochanter. Hip lengths were identified using the [employer] robotics. Takedown of the short external rotators as well as capsulotomy was performed from the level of the piriformis down to the lesser trochanter. Hip was then dislocated. Neck cut was completed and found to be adequate. Attention was turned to the acetabulum. Anterior and posterior acetabular retractors were placed. A circumferential removal of the labrum as well as the pulvinar was done at this time. [place] [employer] robotic checkpoint was then placed on the rim of the acetabulum. Fifteen points were then obtained intra-articularly in the acetabulum points around extra- articular around the acetabulum. Anterior and posterior horns were identified and marked. At this time, the [employer] robotic plan for this patient was a 52 cup. The 52 reamer was brought in, and the reaming was completed until there was just a small rim of red around the ream. At this time, 52 mm component was placed onto the [employer] robotic arm and was impacted in place in roughly 45 degrees of abduction and 20 degrees of anteversion. The MDM liner was then impacted in place. Attention was turned to the femur. Box chisel was used out laterally. Starter awl was placed down the canal. Starting with 0 broach, I was able to broach up to a size 4 which was found to be rotationally and vertically stable. The 28, +0 MDM components were trialed and were found to be a minor amount long, so we trialed a -4 and had adequate christianity of leg lengths and was stable throughout range of motion. Bone hook was used to dislocate the trial components. Trial components were removed. A size 4 Accolade II stem was impacted in placed. The 28, -4 MDM components were then impacted in place, and the patient's hip was re-located. A #5 Ethibond suture was used for closure of the short external rotators and capsule. Periarticular injection was completed, and 1 L pulse lavage irrigation with Ancef was irrigated through the hip along with 400 mL of Irrisept irrigation. Topical tranexamic acid and vancomycin powder were applied. A #2 barbed suture was used for closure of the IT band and gluteal fascia, 2-0 Vicryl was used subcutaneously, and Prineo was used for skin closure. The patient tolerated the procedure well and was sent to PACU in stable condition. [facility] /[id number]
== END 2021-01-03 12:05 | disposition home or self-care (01) ==
LOC: JD.SDS 07:11 → JD.MS 13:30 → JD.SDS 01-03 12:05
PROVIDERS: ATTEND Orthopaedic Surgery
DX: M16.11 Unilateral primary osteoarthritis, right hip (principal); B35.3 Tinea pedis; Z88.8 Allergy status to other drugs, medicaments and biological substances; Z79.899 Other long term (current) drug therapy; Z87.891 Personal history of nicotine dependence; Z91.09 Other allergy status, other than to drugs and biological substances
CPT/HCPCS: 27130; 36415; 73501; 86850; 86900; 86901; 94760; 94762; 97116; 97162; 97165; 97530; 97535; A9270; C1713; C1776; J0171; J0690; J0697; J1100; J1170; J1200; J1885; J2250; J2270; J2405; J2704; J2710; J3010; J3370; J3490; J7120; 01214; 87641

== ENCOUNTER 2021-08-19 14:13 | Emergency (ER) | payer BC ==
[2021-08-19] MEDS ORDERED: LORazepam 0.5 MG Tab PO ONE (14:34)
--- NOTE | 2021-08-19 15:57 | EDM.PDOC ---
ED HPI GENERAL MEDICAL PROBLEM - General Chief Complaint: Chest Pain Stated Complaint: CHEST PAINS Time Seen by Provider: 08/19/21 14:25 Source of Information: Reports: Patient History Limitations: Reports: No Limitations - History of Present Illness INITIAL COMMENTS - FREE TEXT/NARRATIVE: The patient presents with palpitations. She said this started about 2pm today. It comes and goes. She is under lots of stress and is wondering if that has contributed to it. She has no chest pain or shortness of breath. She has no fever, chills, cough, abdominal pain, nausea or vomiting. She has never had this happen before. She has no trouble with her heart. She has no trouble with her thyroid. She is tear full and said there is lots going on at work. Onset: Gradual Duration: Hour(s): Severity: Moderate Improves with: Reports: None Worsens with: Reports: None Associated Symptoms: Reports: No Other Symptoms Chest Pain Score (Numeric/FACES): 4 - Related Data Allergies Allergy/AdvReac Type Severity Reaction Status Date / Time adhesive Allergy Cannot Verified 08/19/21 14:24 Remember tyramine Allergy Cannot Uncoded 12/30/20 15:26 Remember Home Meds: Home Meds Acyclovir 800 mg PO ASDIRECTED PRN 12/30/20 [History] Melatonin 3 mg PO DAILY 12/30/20 [History] Multivitamin 1 tab PO DAILY 12/30/20 [History] Pantoprazole Sodium [Protonix] 40 mg PO DAILY 12/30/20 [History] SUMAtriptan [Imitrex] 50 mg PO ASDIRECTED PRN 12/30/20 [History] Sucralfate [Carafate] 1 gm PO QID 12/30/20 [History] Vit A/Vit C/Vit E/Selenium Yst [Antioxidant Formula Tablet] 1 cap PO DAILY 12/30/20 [History] estradioL [Estrace 0.01% Vaginal Crm] 1 dose VAG ASDIRECTED 12/30/20 [History] cephALEXin [Keflex] 08/19/21 [History] Past Medical History HEENT History: Reports: Impaired Vision, Other (See Below) Other HEENT History: reading glasses Cardiovascular History: Reports: None Respiratory History: Reports: None Gastrointestinal History: Reports: Gastritis, Other (See Below) Other Gastrointestinal History: duodenitis, intestinal metaplasia of gastric mucosa, splenic mass, total splenectomy, tubular adenoma Genitourinary History: Reports: Other (See Below) Other Genitourinary History: pelvic pain, cervical stenosis, cyst excision, hysteroscopy 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, Musculoskeletal History: Reports: None Neurological History: Reports: Other (See Below) Other Neuro History: arnold-chiari malformation Psychiatric History: Reports: None Endocrine/Metabolic History: Reports: None Hematologic History: Reports: Other (See Below) Other Hematologic History: thrombocytopenia Immunologic History: Reports: None Oncologic (Cancer) History: Reports: None Dermatologic History: Reports: Other (See Below) Other Dermatologic History: lipoma, scalp cyst excision x 3, keratomileusis, tinea pedis - Infectious Disease History Infectious Disease History: Reports: None - Past Surgical History Head Surgeries/Procedures: Reports: None HEENT Surgical History: Reports: LASIK Cardiovascular Surgical History: Reports: None Respiratory Surgical History: Reports: None GI Surgical History: Reports: Cholecystectomy, Colonoscopy, Other (See Below) Other GI Surgeries/Procedures: splenic mass, splenectomy Female Surgical History: Reports: D&C, Hysterectomy, Tubal Ligation Endocrine Surgical History: Reports: Parathyroidectomy Neurological Surgical History: Reports: None Musculoskeletal Surgical History: Reports: None Oncologic Surgical History: Reports: None Social & Family History - Family History Family Medical History: No Pertinent Family History - Tobacco Use Tobacco Use Status *Q: Never Tobacco User - Caffeine Use Caffeine Use: Reports: Coffee - Recreational Drug Use Recreational Drug Use: No ED ROS GENERAL - Review of Systems Review Of Systems: See Below Constitutional: Reports: No Symptoms HEENT: Reports: No Symptoms Respiratory: Reports: No Symptoms Cardiovascular: Reports: Palpitations. Denies: Chest Pain Endocrine: Reports: No Symptoms GI/Abdominal: Reports: No Symptoms : Reports: No Symptoms Musculoskeletal: Reports: No Symptoms ED EXAM, GENERAL - Physical Exam Exam: See Below Exam Limited By: No Limitations General Appearance: Alert, No Apparent Distress Ears: Normal External Exam Nose: Normal Inspection Head: Atraumatic, Normocephalic Neck: Normal Inspection Respiratory/Chest: No Respiratory Distress, Lungs Clear, Normal Breath Sounds Cardiovascular: Regular Rate, Rhythm, No Edema, No Murmur GI/Abdominal: Soft, Non-Tender, No Organomegaly, No Mass Extremities: Normal Inspection #1 Interpretation EKG Date: 08/19/21 Time: 14:22 Rhythm: NSR Rate (Beats/Min): 92 [place]: Normal P-Wave: Present QRS: Normal ST-T: Normal QT: Normal Course - Vital Signs Last Recorded V/S: Last Vital Signs Temp 97.4 F 08/19/21 14:20 Pulse 105 H 08/19/21 14:20 Resp 18 08/19/21 14:20 BP 131/92 H 08/19/21 14:20 Pulse Ox 100 08/19/21 14:20 - Orders/Labs/Meds Orders: Active Orders 24 hr Category Date Time Status Cardiac Monitoring [RC] . DIRECTED Care 08/19/21 14:33 Active Holter Monitor 48 Hours [RC] .PRN Care 08/19/21 16:10 Ordered Labs: Laboratory Tests 08/19/21 08/19/21 Range/Units 14:44 14:44 WBC 8.87 (3.98-10.04) K/mm3 RBC 3.87 L (3.98-5.22) M/mm3 Hgb 11.7 D (11.2-15.7) gm/dl Hct 37.0 (34.1-44.9) % MCV 95.6 H (79.4-94.8) fl MCH 30.2 (25.6-32.2) pg MCHC 31.6 L (32.2-35.5) g/dl RDW Std Deviation 48.1 H (36.4-46.3) fL Plt Count 302 (182-369) K/mm3 MPV 10.3 (9.4-12.3) fl Neut % (Auto) 44.4 (34.0-71.1) % Lymph % (Auto) 46.1 (19.3-51.7) % [place] % (Auto) 7.7 (4.7-12.5) % Eos % (Auto) 1.4 (0.7-5.8) Baso % (Auto) 0.3 (0.1-1.2) % Neut # (Auto) 3.94 (1.56-6.13) K/mm3 Lymph # (Auto) 4.09 H (1.18-3.74) K/mm3 [place] # (Auto) 0.68 H (0.24-0.36) K/mm3 Eos # (Auto) 0.12 (0.04-0.36) K/mm3 Baso # (Auto) 0.03 (0.01-0.08) K/mm3 Sodium 140 (136-145) mEq/L Potassium 3.4 L (3.5-5.1) mEq/L Chloride 103 (98-107) mEq/L Carbon Dioxide 30 (21-32) mEq/L Anion Gap 10.4 (5-15) BUN 18 (7-18) mg/dL Creatinine 0.9 (0.55-1.02) mg/dL Est Cr Clr Drug Dosing 67.29 mL/min Estimated GFR (MDRD) > 60 (>60) mL/min BUN/Creatinine Ratio 20.0 H (14-18) Glucose 131 H (70-99) mg/dL Calcium 8.9 (8.5-10.1) mg/dL Total Bilirubin 0.3 (0.2-1.0) mg/dL AST 27 (15-37) U/L ALT 30 (14-59) U/L Alkaline Phosphatase 67 (46-116) U/L Troponin I < 0.017 (0.00-0.056) ng/mL Total Protein 8.0 (6.4-8.2) g/dl Albumin 4.0 (3.4-5.0) g/dl Globulin 4.0 gm/dL Albumin/Globulin Ratio 1.0 (1-2) TSH 3rd Generation 0.384 (0.358-3.74) uIU/mL Meds: Medications Discontinued Medications Generic Name Dose Route Start Last Admin Trade Name Freq PRN Reason Stop Dose Admin Lorazepam 0.5 mg 08/19/21 14:34 08/19/21 14:52 Lorazepam 0.5 Mg Tab PO 08/19/21 14:35 0.5 mg ONETIME ONE Administration - Re-Assessments/Exams Free Text/Narrative Re-Assessment/Exam: 08/19/21 15:59 I ordered an EKG and labs. Her EKG shows a NSR with no acute changes. Her CBC looks good. Her K was low at 3.4. Her glucose was 131. Her troponin is negative. Her TSH was normal. I did give her ativan 0.5mg PO. 08/19/21 16:10 She feels better. I will order a 48 hour holter monitor and have he follow up with Nadya Carter her primary care provider. Departure - Departure Time of Disposition: 16:15 Disposition: Home, Self-Care 01 Condition: Good Clinical Impression: Palpitations, Anxiety Referrals: Nadya Carter PA-C [Primary Care Provider] - 1 Week Forms: ED Department Discharge Additional Instructions: Wear the holter monitor for 48 hours. Try to keep track of events that happened. Drink plenty of fluids. Follow up with Nadya within a week. Please return if you are worse. Sepsis Event Note (ED) - Evaluation Sepsis Screening Result: No Definite Risk - Focused Exam Vital Signs: Vital Signs Temp Pulse Resp BP Pulse Ox 08/19/21 14:20 97.4 F 105 H 18 131/92 H 100 - My Orders Last 24 Hours: My Active Orders 08/19/21 14:33 Cardiac Monitoring [RC] . DIRECTED 08/19/21 16:10 Holter Monitor 48 Hours [RC] .PRN - Assessment/Plan Last 24 Hours: My Active Orders 08/19/21 14:33 Cardiac Monitoring [RC] . DIRECTED 08/19/21 16:10 Holter Monitor 48 Hours [RC] .PRN
[2021-08-19 16:39] VITALS: BP 135/86; PULSE 85
== END 2021-08-19 16:39 | disposition home or self-care (01) ==
LOC: JD.ED 14:13
DX: R00.2 Palpitations (principal); F41.9 Anxiety disorder, unspecified; Z91.040 Latex allergy status; Z88.8 Allergy status to other drugs, medicaments and biological substances
CPT/HCPCS: 36415; 80053; 84443; 84484; 85025; 93005; 93225; 93226; 99285; A9270

== ENCOUNTER 2025-08-04 07:27 | Day surgery (SDC) | payer BC ==
[~2025-08-04 07:27] MED LIST changes: -Acetaminophen 325 MG Tab PO SCH; -Lactated Ringers 1,000 ML ONE; -Lidocaine 1%/Sod Bicarbonate in NS 8.4% 1 ML Syringe IDERM PRN; -Midazolam 1 MG/ML 2 ML SDV ONE; -Pregabalin 25 MG Cap PO SCH; -Propofol 200 MG/20 ML SDV ONE; +Sodium Chloride 0.9% 10 ML Syringe FLUSH SCH; -ceFAZolin 1 GM Vial ONE; -fentaNYL 100 MCG/2 ML SDV ONE; -oxyCODONE ER 10 MG TAB.ER PO SCH
[2025-08-04] MEDS: Lactated Ringers 1,000 ML IV SCH (07:30)
[2025-08-04] MEDS ORDERED: propofoL 500 MG/50 ML 50 ML ONE (08:00)
[2025-08-04] MEDS ORDERED: Propofol 200 MG/20 ML SDV ONE (08:28)
[2025-08-04 10:35] VITALS: BP 122/74; PULSE 78
== END 2025-08-04 10:20 | disposition home or self-care (01) ==
LOC: JD.SDS 07:27
PROVIDERS: ATTEND Surgery
DX: Z12.11 Encounter for screening for malignant neoplasm of colon (principal); D12.5 Benign neoplasm of sigmoid colon; K63.5 Polyp of colon; Z80.0 Family history of malignant neoplasm of digestive organs; Z88.8 Allergy status to other drugs, medicaments and biological substances; Z86.0100 Personal history of colon polyps, unspecified; Z79.899 Other long term (current) drug therapy
CPT/HCPCS: 45380; J2003; J2704; J7120; 00811